=== PATIENT | female | born 1990 | race Caucasian/White ===

== ENCOUNTER 2018-09-01 06:32 | Inpatient (IN) | payer MEDICAID, OTHER ==
[2018-09-01] MEDS ORDERED: Lactated Ringer's 1,000 ML IV ONE (06:52)
[2018-09-01 06:54] VITALS: BMI 31.1
[2018-09-01] MEDS ORDERED: cefOXitin IV 2 gm in Dextrose 2 GM/50 ML BAG IVPB ONE (06:54)
[2018-09-01] MEDS ORDERED: Sodium Citrate/Citric Acid 15 ml Sol PO ONE (06:55)
[2018-09-01 07:21] LABS: BASO # 0.1 K/uL (0.0-0.2); BASO % 0.5 % (0.0-2.0); EOS # 0.5 K/uL (0.0-0.7); EOS % 4.9 % (0.0-4.0); HEMOGLOBIN 12.2 g/dL (11.0-16.0); LYMPH # 1.9 K/uL (1.0-4.3); LYMPH % 19.1 % (20.0-40.0); MEAN CELL VOLUME 94.5 fL (81.0-99.0); MEAN CORPUSCULAR HEMOGLOBIN 31.5 pg (27.0-31.0); MEAN CORPUSCULAR HGB CONC 33.3 g/dL (33.0-37.0); MEAN PLATELET VOLUME 9.3 fL (7.2-11.7); MONO # 0.8 K/uL (0.0-0.8); MONO % 8.5 % (0.0-10.0); NEUT # 6.6 K/uL (1.8-7.0); RBC 3.86 Mil/uL (3.80-5.20); RED CELL DISTRIBUTION WIDTH 13.8 % (11.5-14.5); WHITE BLOOD COUNT 9.9 K/uL (4.8-10.8)
[2018-09-01 07:26] LABS: SQUAMOUS EPITHIAL 5 /hpf (0-5); URINE BACTERIA OCC (<OCC); URINE BILIRUBIN NEGATIVE (NEGATIVE); URINE BLOOD NEGATIVE (NEGATIVE); URINE CLARITY Hazy (Clear); URINE COLOR Yellow (YELLOW); URINE GLUCOSE (UA) NORMAL (Normal); URINE LEUKOCYTE ESTERASE 1+ Leu/uL (Negative); URINE PROTEIN NEGATIVE (NEGATIVE); URINE UROBILINOGEN NORMAL mg/dL (0.2-1.0)
[2018-09-01] MEDS: Lactated Ringer's 1,000 ML IV SCH (07:43)
[2018-09-01 07:48] LABS: ALB/GLOB RATIO 1.4 (1.0-2.1); ALBUMIN 3.5 g/dL (3.5-5.0); ALT/SGPT 34 U/L (9-52); AST/SGOT 55 U/L (14-36); BLOOD UREA NITROGEN 9 mg/dL (7-17); CALCIUM 8.8 mg/dl (8.6-10.4); GFR NON-AFRICAN AMERICAN > 60
--- NOTE | 2018-09-01 09:02 | OBADHP ---
Datetime: 09/01/2018 08:56 Admit Comment, IP Provider: at 39weks here for repeat c/s,no ctxs, vb , lof+fm. obhx 1 x still med pnv all nkda psh c/s soch de a/p at 39weeks previous c/s admit to l7d palliative senior np/ivf abs pain ma skin abxs anthsea awar Pelvic Type - PN: Adequate Extremities - PN: Normal Abdomen - PN: Normal Back - PN: Normal Breast - PN: Normal Lungs - PN: Normal Heart - PN: Normal Thyroid - PN: Normal Neurologic - PN: Normal HEENT - PN: Normal General - PN: Normal FHR - Baseline A Provider: 130 Contraction Comments Provider: none IP Hx Assessment: The History has been Reviewed and is Current Vital Signs Provider: Reviewed; Within Normal Limits IP Chief Complaint: Scheduled Section NICHD Variability Prov Fetus A: Moderate 6-25bpm NICHD Accel Fetus A IP Provider: 15X15 FHR Category Provider Fetus A: Category I Genitourinary Exam: Normal DTRs - PN: Normal EGA AdmitDate IP: 39.0 IP Adm Impression: Term, intrauterine IP Admit Plan: Admit to unit; Initiate Section protocol
[2018-09-01] MEDS: Simethicone 80 mg Chewtab PO SCH ×3 (14:06→21:48)
--- NOTE | 2018-09-01 19:51 | OBDS ---
DELIVERY PERSONNEL Delivery Doctor: Kodak Lorenzana MD Protocol Manager: Lazara Wong RN Anesthesiologist: DR MEDEROS MATERNAL INFORMATION Delivery Anesthesia: Spinal Medications in Delivery: PITOCIN 20 Estimated Blood Loss (ml): 600 Placenta Cultured: Yes Maternal Complications: None Provider Comments: dr lorenzana private baby de;iverd in [place].cord was reduced end clean placente rto patholgy cord gas send no com LABOR SUMMARY EDC: 09/08/2018 00:00 No. Babies in Womb: 1 Attempted: No Labor Anesthesia: None LABOR INFORMATION Oxytocin: N/A Steroids Given: None Reason Steroids Not Administered: Not Applicable MEMBRANES Membranes Rupture Method: Artificial Rupture of Membranes: 09/01/2018 08:18 Length of Rupture (hrs): 0.00 Amniotic Fluid Color: Clear Amniotic Fluid Amount: Moderate Amniotic Fluid Odor: Normal STAGES OF LABOR Stage 3 hrs: 0 Stage 3 min: 1 CSECTION DELIVERY Primary Indication: Repeat Elective Secondary Indication: N/A CSection Urgency: Elective CSection Incidence: Repeat Labor: No Labor Elective: Elective CSection Incision: Lower Uterine Transverse BABY A INFORMATION Infant Delivery Date/Time: 09/01/2018 08:18 Method of Delivery: Born in Route : No : N/A Forceps: N/A Vacuum Extraction: N/A Shoulder Dystocia : No SHOULDER DYSTOCIA BABY A Delivery Date/Time: 09/01/2018 08:18 PRESENTATION/POSITION BABY A Presentation: Cephalic Cephalic Presentation: Vertex Vertex Position: Left Occipital Anterior Breech Presentation: N/A PLACENTA INFORMATION BABY A Placenta Delivery Time : 09/01/2018 08:19 Placenta Method of Delivery: Expressed Placenta Status: Delivered SCORES BABY A Heart Rate 1 min: >100 bpm Resp Effort 1 min: Good Cry Reflex Irritability 1 min: Cough or Sneeze or Pulls Away Muscle Tone 1 min: Active Motion Color 1 min: Body [place], Extremities Blue SCORE 1 MIN: 9 Heart Rate 5 min: >100 bpm Resp Effort 5 min: Good Cry Reflex Irritability 5 min: Cough or Sneeze or Pulls Away Muscle Tone 5 min: Active Motion Color 5 min: Body [place], Extremities Blue SCORE 5 MIN: 9 INFORMATION BABY A Gestational Age at Delivery: 39.0 Gestational Status: Term Infant Outcome : Liveborn Infant Condition : Stable Infant Sex: Female IDENTIFICATION/MEDS BABY A ID Band Number: [id number] ID Band Location: Left Leg; Left Arm Sensor Applied: Yes Sensor Number: [id number] Sensor Location : Cord Clamp WEIGHT/LENGTH BABY A Birthweight (gms): 2865 Infant Weight (lb): 6 Infant Weight (oz): 5 Length Inches: 19.00 Length cms: 48.3 CORD INFORMATION BABY A No. Cord Vessels: 3 Nuchal Cord : Around Neck x1, Loose Cord pH Baby Venous: 7.33 Cord Blood Taken: Yes Suction: Mouth; Nose ASSESSMENT BABY A Infant Complications: None Physical Findings at Delivery: Within Normal Limits Infant Respirations: Appears Normal Optical Engineering Manager/ALS Called : No Care By: dr dumont Transferred To: Remains with Mother
[2018-09-01] MEDS: Oxycodone/Acetaminophen 5/325 mg Tab PO PRN (21:48)
[2018-09-02] MEDS: Oxycodone/Acetaminophen 5/325 mg Tab PO PRN ×2 (04:36→20:22)
[2018-09-02] MEDS: Lactated Ringer's 1,000 ML IV SCH (04:38)
--- NOTE | 2018-09-02 07:15 | OP ---
PROCEDURE DATE: 09/01/2018 PREOPERATIVE DIAGNOSIS: A 28-year-old 2, para 0 at 39 weeks with previous section. POSTOPERATIVE DIAGNOSIS: A 28-year-old 2, para 0 at 39 weeks with previous section. SURGEON: Kodak Lorenzana MD FRUIT THINNER: Kendall Partida MD ANESTHESIA: Spinal. ANESTHESIOLOGIST: Chandana Rosales MD COMPLICATIONS: None. ESTIMATED BLOOD LOSS: 700 mL. PROCEDURE PERFORMED: Repeat section. DESCRIPTION OF THE PROCEDURE: After informed consent was obtained, the patient was brought to the operating room and placed on the table where spinal anesthesia was given. Once the anesthesia was found to be sufficient, she was prepped and draped in a normal sterile fashion. A Dent catheter was inserted under sterile condition. About 2 cm above the pubic bone, a skin incision was made with a knife, and the subcutaneous tissue was cut with the Bovie. The fascia was then excised on both the sides using curved Pate scissors. The fascia was from the site of the umbilicus and then at the site of the rectus muscle. The rectus muscle was . The peritoneum was lifted up with two Allis and was cut with the Metzenbaum scissors. After that, bladder blade was placed. Bladder flap was created. The bladder blade was replaced. The lower uterine segment incision was made with a knife. It was extended using Bovie and curved Pate scissors. Baby delivered in a LESLIE position. Cord was clamped and cut. Baby was handed to the awaiting automotive welder. There was a cord around the neck which was reduced. Cord gas was taken. Placenta delivered manually and sent off for pathology. The uterus was exteriorized and cleared of all clots and debris. The uterine incision was closed using #0 Vicryl in running interlocking fashion. Second layer was closed with the same stitch. After that, cul-de-sac was cleared of all the clots and debris. The uterus was returned back to the abdominal cavity. Gutters were cleared of all the clots and debris. The peritoneum was closed using a 2-0 Vicryl in a running interlocking fashion. The muscle was closed using a 2-0 Vicryl in running interlocking fashion. Fascia was closed using #0 Vicryl in a running interlocking fashion. Skin was closed using 3-0 Monocryl on a straight needle. The patient tolerated the procedure well. Lap, sponge and instrument count were correct x2 at the end of the case. Kodak Lorenzana MD
--- NOTE | 2018-09-02 07:29 | OBPPN ---
Datetime: 09/02/2018 07:26 PP Pain Prov: Within normal limits PP Nausea Prov: Denies PP Flatus Prov: No PP Impression Prov: Normal progression PP Impression Other Prov: hiv + PP Progress Note Prov: pt was seen at bed side, pain under control,no n.v, toretating eit, flatus-,w aiting to void pod#1 hiv +, waiting wetern bolt cont pnv encoiurage ambulation cont post op care care cont painmana id consult f/u Vital Signs Provider PP: Reviewed; Within Normal Limits
[2018-09-02 08:25] LABS: HEMOGLOBIN 12.6 g/dL (11.0-16.0); MEAN CELL VOLUME 96.1 fL (81.0-99.0); MEAN CORPUSCULAR HEMOGLOBIN 31.4 pg (27.0-31.0); MEAN CORPUSCULAR HGB CONC 32.6 g/dL (33.0-37.0); MEAN PLATELET VOLUME 9.4 fL (7.2-11.7); RBC 4.03 Mil/uL (3.80-5.20); RED CELL DISTRIBUTION WIDTH 13.9 % (11.5-14.5)
[2018-09-02 08:27] LABS: WHITE BLOOD COUNT 15.7 K/uL (4.8-10.8)
[2018-09-02] MEDS ORDERED: Bisacodyl 5mg EC Tab PO ONE (08:45)
--- NOTE | 2018-09-02 09:23 | CP.PCM.PCO ---
Physician Communication Note - Physician Communication Note Physician Communication Note: see above
[2018-09-02] MEDS: Prenatal Multivit/Folic Acid/Iron Tab PO SCH (10:04)
[2018-09-02] MEDS: Simethicone 80 mg Chewtab PO SCH ×4 (10:04→21:39)
--- NOTE | 2018-09-02 15:22 | CP.PCM.CON ---
History of Present Illness - History of Present Illness History of Present Illness: dictated Meds Allergies/Adverse Reactions: Allergies Allergy/AdvReac Type Severity Reaction Status Date / Time No Known Allergies Allergy Verified 09/01/18 06:52 - Medications Medications: Current Medications Docusate Sodium (Colace) 100 mg PO BID [facility] Last Admin: 09/02/18 10:04 Dose: 100 mg Lactated Ringer's (Lactated Ringer's) 1,000 mls @ 125 mls/hr IV .Q8H [facility] Last Admin: 09/02/18 04:38 Dose: 125 mls/hr Ibuprofen (Motrin Tab) 600 mg PO Q6H PRN PRN Reason: Pain, Mild (1-3) Last Admin: 09/02/18 14:10 Dose: 600 mg Oxycodone/Acetaminophen (Percocet 5/325 Mg Tab) 1 tab PO Q4H PRN PRN Reason: Pain, moderate (4-7) Stop: 09/04/18 09:16 Oxycodone/Acetaminophen (Percocet 5/325 Mg Tab) 2 tab PO Q4H PRN PRN Reason: Pain, severe (8-10) Stop: 09/04/18 09:16 Last Admin: 09/02/18 04:36 Dose: 2 tab Multivit/Folic Acid/Iron () 1 tab PO DAILY [facility] Last Admin: 09/02/18 10:04 Dose: 1 tab Sennosides (Senokot Tab) 17.2 mg PO HS [facility] Last Admin: 09/01/18 21:48 Dose: 17.2 mg Simethicone (Mylicon Chew Tab) 80 mg PO QID [facility] Last Admin: 09/02/18 14:08 Dose: 80 mg Results - Vital Signs Recent Vital Signs: Last Vital Signs Temp 98.2 F 09/02/18 08:00 Pulse 110 H 09/02/18 08:00 Resp 18 09/02/18 08:00 BP 91/56 L 09/02/18 08:00 Pulse Ox 97 09/02/18 08:00 - Labs Result Diagrams: 09/02/18 08:08 09/01/18 07:00 Labs: Laboratory Results - last 24 hr 09/01/18 09/01/18 09/02/18 07:00 19:26 08:08 WBC 15.7 H D RBC 4.03 Hgb 12.6 Hct 38.8 MCV 96.1 MCH 31.4 H MCHC 32.6 L RDW 13.9 Plt Count 231 MPV 9.4 HIV 1&2 Antibody Screen Reactive HIV 1&2 Antibody Nonreactive
[2018-09-02] MEDS ORDERED: Erythromycin 0.5% Ophth Oint 1 APPLIC/3.5 G ONE (17:35)
[2018-09-03] MEDS: Oxycodone/Acetaminophen 5/325 mg Tab PO PRN ×2 (01:59→21:13)
[2018-09-03 07:12] LABS: BASO # 0.1 K/uL (0.0-0.2); BASO % 0.4 % (0.0-2.0); EOS # 0.6 K/uL (0.0-0.7); LYMPH # 1.9 K/uL (1.0-4.3); LYMPH % 12.6 % (20.0-40.0); MEAN CELL VOLUME 95.9 fL (81.0-99.0); MEAN CORPUSCULAR HEMOGLOBIN 31.5 pg (27.0-31.0); MEAN CORPUSCULAR HGB CONC 32.9 g/dL (33.0-37.0); MEAN PLATELET VOLUME 9.5 fL (7.2-11.7); MONO # 1.2 K/uL (0.0-0.8); MONO % 7.8 % (0.0-10.0); NEUT # 11.1 K/uL (1.8-7.0); NEUT % 75.2 % (50.0-75.0); RBC 3.49 Mil/uL (3.80-5.20); WHITE BLOOD COUNT 14.8 K/uL (4.8-10.8)
--- NOTE | 2018-09-03 07:13 | CON ---
DATE: 09/02/2018 INFECTIOUS DISEASE CONSULTATION REQUESTED BY: Kodak Lorenzana MD HISTORY OF PRESENT ILLNESS: This patient is a 28-year-old female. She just delivered yesterday, and they had done a HIV test which came out reactive. This was done in in-house, and then, it was sent to external lab, and there are 2 HIV initial tests which have come out positive, but one of them was reported negative from the outside lab and the second one report is pending. The resident called me this morning about treatment for HIV and to get a consult. The patient is a 28-year-old [employer] female who tells me that this is her second baby, first one was still born a year ago. She is for four years. It was a surprise when she had the HIV test positive and was anxious, so I went to see her and she was also having low blood pressure according to the resident, but she said she was not having any dizziness, she ate, and she had baby girl, and she says the baby was fine. She has no other previous medical history. She was on vitamin. She has been following first at [facility], and then now with Dr. Lorenzana as she got the insurance. ALLERGIES: SHE IS NOT ALLERGIC TO ANY MEDICINES. SURGICAL HISTORY: Significant for a yesterday. SOCIAL HISTORY: Negative for smoking or drinking or any drug abuse, and she has had HIV negative I am told, but her old clinic records are in the chart, but the resident told me, she reviewed it and could not find the previous test results. We will await to get a fourth generation HIV test. Also, I did speak to the [facility] and the person was from predelivery part of HIV disease. They followed and discussed the case with her, so there was no need to start anything as we are not sure whether she has HIV or she does not which I agree with. REVIEW OF SYSTEMS: The patient denies any other review of systems. Denies any other complaints. She did say her legs were swelling when she was , but they do not look any different. PHYSICAL EXAMINATION: VITAL SIGNS: T-max was 98.7, pulse is 90, blood pressure was 92/63, respirations are 18. GENERAL: She was alert, oriented x3. HEENT: Head is atraumatic, normocephalic. Pupils are reacting to light. Tongue was little dry. NECK: Supple. JVP is flat. BREASTS: Enlarged. HEART: S1 and S2 are regular. ABDOMEN: She had a binder on. Surgical scar, the resident opened the scar and the scar looks okay. Looked fine with no redness, no drainage, and had a nonadhesive dressing. EXTREMITIES: Have bilateral 1+ edema. LABORATORY DATA: Labs are noted. Labs show white count is 15.7, hemoglobin 12.6, hematocrit 38.8, platelet count is 231, so I would repeat the white count tomorrow, this may be postop change, and for serology, RPR has been nonreactive. HIV test was reactive. Screen was reactive, and HIV I and II antibodies were nonreactive, and then the other one was reactive, so I am not sure. We will have to look up for the confirmation test, and we will follow. PLAN: She does have a white count postop. We will suggest to repeat it tomorrow again. As she has low blood pressure, we did order some workup which is suggested in patient's on new onset of HIV disease, which I had the resident to order, so that the levels would be there, especially hepatitis profile, and we have ordered it and we will follow. So, at this time, the patient was reassured until we get the report of the fourth generation. We cannot say that she has this disease, and she is and little hypotensive with high white count, need to monitor for any infection and this could be just related to postop WBC count. We will follow. Oliver Todd MD
[2018-09-03 08:02] LABS: BLOOD UREA NITROGEN 6 mg/dL (7-17); CALCIUM 8.4 mg/dl (8.6-10.4); GFR NON-AFRICAN AMERICAN > 60
[2018-09-03 09:22] LABS: HEPATITIS C ANTIBODY NEGATIVE (NEGATIVE)
[2018-09-03] MEDS: Prenatal Multivit/Folic Acid/Iron Tab PO SCH (09:40)
[2018-09-03] MEDS: Simethicone 80 mg Chewtab PO SCH ×4 (09:43→21:12)
[2018-09-03 11:41] LABS: % CD4 (T HELPER CELL) 37 Percent (30-61); % CD8 (SUPPRESSOR T CELL) 29 Percent (12-42); ABSOLUTE CD4 CELLS 486 Cells/mcL (490-1740); ABSOLUTE CD8 CELLS 377 Cells/mcL (180-1170); ABSOLUTE LYMPHOCYTES 1313 Cells/mcL (850-3900); HELPER/SUPPRESSOR RATIO 1.29 Ratio (0.86-5.00)
[2018-09-04 08:06] VITALS: BP 108/72; PULSE 89; RESP 20; TEMP 98.9; O2SAT 98
[2018-09-04] MEDS ORDERED: Influenza Vaccine 60 mcg/0.5 mL SYR (4YR UP) IM ONE (08:29)
[2018-09-04] MEDS: Simethicone 80 mg Chewtab PO SCH ×2 (09:27→14:33)
[2018-09-04] MEDS: Prenatal Multivit/Folic Acid/Iron Tab PO SCH (09:29)
--- NOTE | 2018-09-04 16:14 | OBPPN ---
Datetime: 09/04/2018 14:19 PP Pain Prov: Within normal limits PP Nausea Prov: Denies PP Flatus Prov: Yes PP BM Prov: Yes PP Breasts Prov: Not Done PP Heart Prov: Normal PP Lungs Prov: Normal PP Abdomen/Uterus Prov: Normal PP Lochia Prov: Not Done PP Vulva/Perineum Prov: Not Done PP CVA Tenderness Prov: Not Done PP Extremities Prov: Normal PP C/S Incision Prov: Normal PP Progress Prov: Normal PP Comments Phys Exam Prov: fundal height: 1 finger breadth below umbilicus abdomen: tender to palpation right and left lower quadrants PP Impression Prov: Normal progression PP Plan Prov: Discharge PP Progress Note Prov: Patient examined at bedside per Dr. lorenzana's request. Patient reports she has been ambulating without difficulty, tolerating regular diet without nausea, last BM yesterday and pa ssing gas. Per RN patient has not been complaining of significant pain; last percocet was yesterday b ut none today. Patient has been abstaining from pending HIV workup; and continues to odalis ttle feed baby. Called [facility] for confirmatory second HIV test. [facility] faxed over their lab results, which w ere then forwarded for Dr. Todd's (ID consult) review. Spoke to Dr. Todd. She states that jorge luis english does not have HIV. She will come this afternoon before patient is discharged to explain to her the negative results. Meanwhile, patient is starting to pump milk per instruction of consult. vitals and physical exam: see above A/P: 28 year old s/p LTCS POD #3 -encourage ambulation, hydration, regular diet -f/u additional lab workup - still pending infectious workup though negative thus far -HIV+ screen, two confirmatory tests negative. Makes patient negative for HIV per ID, Dr. Todd, upon review of results from [facility]. -Patient is to f/u outpatient w/ Dr. Lorenzana in 2 weeks due to s/p LTCS. -patient aware to discuss contraception with Dr. Salomón during f/u and agrees with post care instructions explained in discharge note Anny Epps DO PGY1 Pt seen and examined with Dr. Epps and all of her findings and POC were reviewed and agreed upon. IP PP Procedures: None Vital Signs Provider PP: Reviewed; Within Normal Limits
--- NOTE | 2018-09-04 20:02 | PN ---
DATE: 09/04/2018 SUBJECTIVE: I came to see her today and she has no new complaints. She was waiting for her results as HIV was reactive and we were waiting for the 4th generation and HIV viral load. PHYSICAL EXAMINATION: VITAL SIGNS: T-max is 98.9, pulse 89, blood pressure is 108/72, and respirations are 20. GENERAL: She has been pumping her so remains afebrile, denies any complaints. HEENT: Head is atraumatic and normocephalic. NECK: Supple. LUNGS: Clear. HEART: S1 and S2 is regular. BREASTS: Engorged but she is using breast pump. ABDOMEN: Soft. She has a surgical scar, which is unremarkable at this time. EXTREMITIES: Remain with bilateral edema, which is decreasing. NEUROLOGIC: She excited to go home. LABORATORY DATA: White count 14.8, hemoglobin 11, hematocrit 33.4, and platelet count is 200 and it is decreasing from yesterday. Her RPR is negative. Hepatitis B surface antigen antibody and C is negative. HIV is negative and toxoplasma came on negative and viral load is undetectable. Fourth generation test report, which is lab specimen number is [id number] is nonreactive. ASSESSMENT AND PLAN: So, in this case, I think the rapid HIV was falsely positive and the patient's HIV negative and does not need any other further workup and is cleared to go home. She was told her gold QuantiFERON test is pending, but she states she has had it many times and it was negative in the past. So, we will leave it for her to follow with her primary or she can call us to see if her gold QuantiFERON test is negative from [facility]. Oliver Todd MD
== END 2018-09-04 16:00 | disposition home or self-care (01) | DRG 371 ==
LOC: C.EROB 06:32 → C.9E 07:13 → C.4LDOR 08:14 → C.4D 08:30 → C.4M 11:23
PROVIDERS: ADMIT Obstetrics & Gynecology; ATTEND Obstetrics & Gynecology
PROC: 10D00Z1 Extraction of Products of Conception, Low, Open Approach (ICD-10-PCS; principal; 2018-09-01)
DX: O69.81X0 Labor and delivery complicated by cord around neck, without compression, not applicable or unspecified (principal); O34.211 Maternal care for low transverse scar from previous cesarean delivery; Z3A.39 39 weeks gestation of pregnancy; O98.72 Human immunodeficiency virus [HIV] disease complicating childbirth; Z21 Asymptomatic human immunodeficiency virus [HIV] infection status; Z37.0 Single live birth

== ENCOUNTER 2018-09-27 09:01 | Outpatient (CLI) | payer OTHER | END 2018-09-27 09:02 | disposition home or self-care (01) | LOC: C.VASC 09:01 | DX: R60.9 Edema, unspecified (principal) ==